=== PATIENT | female | born 1985 | race Hispanic/Latino ===

== ENCOUNTER 2022-05-27 18:34 | Emergency (ER) | payer MEDICAID, OTHER ==
[~2022-05-27] VITALS: Ht 154.9 cm; Wt 504.4 kg
[2022-05-27 19:21] LABS: BASOPHILS % (AUTO) 0.1 % (0.0-5.0); LYMPHOCYTES % (AUTO) 2.7 % (21.0-51.0); MEAN CORPUSCULAR HEMOGLOBIN 28.5 pg (27.0-33.0); MEAN CORPUSCULAR HGB CONC 34.4 g/dL (32.0-36.0); MONOCYTES % (AUTO) 7.9 % (3.0-13.0); NEUTROPHILS % (AUTO) 88.9 % (40.0-77.0); PLATELET COUNT (AUTO) 130 K/uL (130-400); RED CELL DISTRIBUTION WIDTH 12.7 % (11.0-15.5); WHITE BLOOD COUNT (AUTO) 9.3 K/uL (4.8-10.8)
[2022-05-27] MEDS ORDERED: ACETAMINOPHEN 500 MG TABLET PO ONE (19:30)
[2022-05-27] MEDS ORDERED: KETOROLAC 30MG VIAL (30MG/ML) IVP ONE (19:30)
[2022-05-27] MEDS ORDERED: ONDANSETRON 4MG INJ IVP ONE (19:30)
[2022-05-27 19:37] LABS: ALBUMIN 3.5 g/dL (3.5-5.0); CREATININE 0.8 mg/dL (0.5-1.5); TOTAL PROTEIN, SERUM 7.7 g/dL (6.0-8.3)
[2022-05-27 19:43] LABS: APPEARANCE,URINE CLEAR (CLEAR); BILIRUBIN,URINE NEGATIVE (NEGATIVE); COLOR,URINE YELLOW (YELLOW); GLUCOSE, URINE (UA) NEGATIVE (NEGATIVE); KETONES,URINE 40 mg/dL (NEGATIVE); LEUKOCYTE ESTERASE ,URINE SMALL (NEGATIVE); NITRATE,URINE POSITIVE (NEGATIVE); OCCULT BLOOD,URINE SMALL (NEGATIVE); PH,URINE 6.5 (5.0-8.0); PROTEIN,URINE NEGATIVE (NEGATIVE)
[2022-05-27 19:57] LABS: HCG,QUALITATIVE URINE NEGATIVE (NEGATIVE)
[2022-05-27] MEDS ORDERED: POTASSIUM BICARB/CIT AC 25 MEQ TABLET.EFF PO ONE (20:00)
[2022-05-27 20:04] LABS: BACTERIA,URINE Few /HPF (None Seen); RBC,URINE 0-1 /HPF (0-1); SQUAMOUS EPITHELIAL CELL,UR Rare /HPF (0-2)
[2022-05-27] MEDS ORDERED: 0.9%NACL 1000ML 1,000 ML IV ONE (20:18)
[2022-05-27] MEDS ORDERED: CEFTRIAXONE 1G VIAL IVP ONE (20:30)
[2022-05-27] MEDS ORDERED: CEPH500B PO (20:56)
[2022-05-27] MEDS ORDERED: ACET-2247 PO (20:56)
[2022-05-27 21:44] VITALS: BP 120/78
== END 2022-05-27 21:46 | disposition home or self-care (01) ==
LOC: EDH 18:34
DX: U07.1 COVID-19 (principal); N20.0 Calculus of kidney; N39.0 Urinary tract infection, site not specified; E86.0 Dehydration; Z90.49 Acquired absence of other specified parts of digestive tract
CPT/HCPCS: 99284; 74176; 96374; 96375; 87635; 96361; 80053; 83690; 85025; 87077; 87088; 87186; 87804 ×2; 81001; 81025; 36415; C9803; J7030; J0696; J2405; J1885